=== PATIENT | female | born 1970 | race Two or more races ===

== ENCOUNTER 2022-06-20 12:45 | Emergency (ER) | payer OTHER ==
[~2022-06-20] VITALS: Ht 154.9 cm; Wt 72.6 kg
[2022-06-20 13:04] VITALS: BP 125/64
[2022-06-20] MEDS ORDERED: AMOX500C2 PO (13:22)
[2022-06-20] MEDS ORDERED: BENZ-13 PO (13:22)
== END 2022-06-20 13:31 | disposition home or self-care (01) ==
LOC: ER 12:54
DX: J06.9 Acute upper respiratory infection, unspecified (principal)